=== PATIENT | female | born 1980 | race African-American/Black ===

== ENCOUNTER 2021-11-04 13:13 | Emergency (ER) | payer OTHER ==
[~2021-11-04] VITALS: Ht 167.6 cm; Wt 91.6 kg
[2021-11-04] MEDS ORDERED: CYCL5TAB PO (17:23)
[2021-11-04] MEDS ORDERED: CYCLOBENZAPRINE 5MG TABLET PO ONE (17:25)
[2021-11-04] MEDS ORDERED: ACETAMINOPHEN 500 MG TAB PO ONE (17:25)
[2021-11-04] MEDS ORDERED: LIDOCAINE 5% (LIDODERM) PATCH TD ONE (17:25)
[2021-11-04 17:48] VITALS: BP 170/79
[2021-11-04] MEDS ORDERED: **NOTE PATIENT COMMENT** MISC XX SCH (21:00)
== END 2021-11-04 17:53 | disposition home or self-care (01) ==
LOC: M ED 13:13
DX: M62.838 Other muscle spasm (principal)